=== PATIENT | male | born 1975 | race Caucasian/White ===

== ENCOUNTER 2020-09-06 02:14 | Emergency (ER) | payer BC ==
[2020-09-06] MEDS ORDERED: CEFTRIAXONE SODIUM 1 GM ONE (03:31)
[2020-09-06] MEDS ORDERED: KETOROLAC TROMETHAMINE 30MG/ML ONE (03:31)
[2020-09-06 03:45] LABS: BASOPHILS % (AUTO) 0.6 % (0.0-5.0); EOSINOPHILS % (AUTO) 1.7 % (0.0-8.0); HEMATOCRIT 45.4 % (42-54); LYMPHOCYTES % (AUTO) 11.6 % (21.0-51.0); MEAN CORPUSCULAR HEMOGLOBIN 31.6 pg (27.0-33.0); MEAN CORPUSCULAR HGB CONC 34.1 g/dL (32.0-36.0); MEAN CORPUSCULAR VOLUME 92.7 fL (79-99); MONOCYTES % (AUTO) 7.8 % (3.0-13.0); NEUTROPHILS % (AUTO) 77.8 % (40.0-77.0); PLATELET COUNT (AUTO) 254 K/uL (130-400); WHITE BLOOD COUNT (AUTO) 15.4 K/uL (4.8-10.8)
[2020-09-06 03:49] LABS: CREATININE 1.2 mg/dL (0.5-1.5); POTASSIUM 4.2 mmol/L (3.5-5.1)
[2020-09-06 03:54] LABS: ALBUMIN 3.8 g/dL (3.5-5.0); BILIRUBIN,TOTAL 0.2 mg/dL (0.2-1.0); CRP QUANTITATIVE 3.2 mg/L (0.00-9.0); TOTAL PROTEIN, SERUM 7.1 g/dL (6.0-8.3)
[2020-09-06] MEDS ORDERED: TETANUS/DIPHTHERIA TOXOID [ADULT] 0.5 ML VIAL IM ONE (04:07)
== END 2020-09-06 04:51 | disposition home or self-care (01) ==
LOC: EDH 02:14
DX: L03.012 Cellulitis of left finger (principal); Z88.0 Allergy status to penicillin
CPT/HCPCS: 36415; 73140; 80053; 85025; 86140; 90471; 90714; 96365; 99284; J0696; J1885

== ENCOUNTER → 2020-09-13 | Outpatient (CLI) | payer BC | END | disposition home or self-care (01) | LOC: RAH 08:43 | PROVIDERS: ATTEND Family Medicine | DX: L03.012 Cellulitis of left finger (principal) | CPT/HCPCS: 73130 ==